=== PATIENT | male | born 1960 | race Caucasian/White ===

== ENCOUNTER 2016-04-21 10:30 | Emergency (ER) | payer MEDICARE ==
[2016-04-21 10:45] VITALS: BMI 28.5
[2016-04-21 10:46] VITALS: BP 141/75; PULSE 87; TEMP 98.6
--- NOTE | 2016-04-21 11:16 | DIRPT ---
CLINICAL DATA: Right wrist pain status post fall on ice yesterday. EXAM: RIGHT WRIST - COMPLETE 3+ VIEW COMPARISON: 04/10/2015 FINDINGS: There is no evidence of fracture or dislocation. There is no evidence of arthropathy or other focal bone abnormality. Soft tissues are unremarkable. IMPRESSION: Negative. Electronically Signed By: Jabier Banegas M.D. On: 04/21/2016 11:13
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
[2016-04-21] MEDS ORDERED: REGULAR INSULIN 100 UNITS/ML - 3 ML VIAL SQ ONE (11:24)
== END 2016-04-21 11:40 | disposition home or self-care (01) ==
LOC: ED 10:30
DX: S63.501A Unspecified sprain of right wrist, initial encounter (principal); W00.0XXA Fall on same level due to ice and snow, initial encounter; Y93.9 Activity, unspecified; E11.9 Type 2 diabetes mellitus without complications
CPT/HCPCS: 73110; 82962; 96372; 99283; A9270; J3490